=== PATIENT | female | born 1965 | race American Indian/Alaskan Native ===

== ENCOUNTER 2016-10-31 14:03 | Emergency (ER) | payer SELFPAY | END 2016-10-31 14:04 | disposition left against medical advice (07) | LOC: ED 14:03 | DX: R07.9 Chest pain, unspecified (principal); R06.02 Shortness of breath; H53.8 Other visual disturbances; Z53.21 Procedure and treatment not carried out due to patient leaving prior to being seen by health care provider ==

== ENCOUNTER 2016-12-26 22:03 | Emergency (ER) | payer OTHER ==
[2016-12-26] MEDS ORDERED: TYLENOL ONE (22:10)
[2016-12-26 22:11] VITALS: BP 178/97
[2016-12-26] MEDS ORDERED: TYLENOL PO ONE (22:18)
[2016-12-26 23:27] LABS: Basophils % (Auto) 0.5 % (0.0-1.8); Eosinophils % (Auto) 2.6 % (0.0-4.3); Hematocrit 28.4 % (30.3-42.9); Hemoglobin 8.7 gm/dl (10.1-14.3); Mean Corpuscular HGB Conc 31 % (30-34); Red Blood Count 5.26 M/mm3 (3.65-5.03); White Blood Count 7.1 K/mm3 (4.5-11.0)
[2016-12-26 23:44] LABS: Anion Gap 16 mmol/L; Blood Urea Nitrogen 15 mg/dL (7-17); Calcium 9.3 mg/dL (8.4-10.2); Carbon Dioxide 25 mmol/L (22-30); Chloride 97.4 mmol/L (98-107); Glucose 108 mg/dL (65-100); Potassium 3.7 mmol/L (3.6-5.0); Sodium 135 mmol/L (137-145)
[2016-12-26 23:50] LABS: Mean Corpuscular Hemoglobin 17 pg (28-32); Mean Corpuscular Volume 54 fl (79-97)
[2016-12-26 23:51] LABS: Platelet Count 299 K/mm3 (140-440); Red Cell Distribution Width 22.5 % (13.2-15.2)
--- NOTE | 2016-12-27 00:10 | Emergency Department Report ---
Upper Extremity - HPI Chief Complaint: Extremity Problem,Nontraumatic Stated Complaint: LEFT ARM NUMBNESS/SHARP PAIN Time Seen by Provider: 12/27/16 00:08 Upper Extremity: Left Arm (pain and numbness with tingling times one week. Denies any injuries.), Left Forearm, Left Wrist Occurred When: >5 Days Mechanism: Unsure Symptoms: Yes Pain with Movement (without movement), Yes Numbness, No Deformity , No Limited Range of Movement, No Weakness, No Swelling, No Bruising/Ecchymosis , No Laceration or Abrasion Other History: Patient here reports that she's having left arm pain with numbness times one week. She denies any trauma or any history of shoulder injuries. She denies any numbness or tingling to hands her finger. Denies any pain in her wrist. She said pain radiates to her forearm and wrist.. Pain is 10 out of 10 and achy and tingling. Denies any history of heart disease, chest pain or shortness of breath. denies any medical problems. 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 ED Review of Systems ROS: Stated complaint: LEFT ARM NUMBNESS/SHARP PAIN Other details as noted in HPI Comment: All other systems reviewed and negative Constitutional: denies: chills, fever Respiratory: no symptoms reported Cardiovascular: denies: chest pain, palpitations, edema, syncope Gastrointestinal: denies: abdominal pain, nausea, vomiting Musculoskeletal: arthralgia. denies: back pain, myalgia Skin: denies: rash Neurological: numbness, paresthesias. denies: headache, weakness, confusion, abnormal gait, vertigo ED Past Medical Hx - Past Medical History Previous Medical History?: No Additional medical history: Anemia - Surgical History Past Surgical History?: Yes Additional Surgical History: C-Sec x 1 - Family History Family history: no significant - Social History Smoking Status: Never Smoker Substance Use Type: None - Medications Home Medications: Home Medications Medication Instructions Recorded Confirmed Last Taken Type traMADol [Ultram] 50 mg PO Q6HR PRN #20 tablet 12/27/16 Unknown Rx Upper Extremity Exam - Exam General: Vital signs noted. No distress. Alert and acting appropriately. Head and Torso: No HEENT Abnormality, No Neck Tenderness, No Chest/Lungs Abnormality, No Abdominal Tenderness, No Back Tenderness Shoulder Exam: Yes Normal Range of Motion in Shoulder, No Shoulder Tenderness, No Clavicle Tenderness, No Shoulder Deformity, No AC Joint Tenderness Arm Exam: No Arm/Humerus Tenderness, No Arm Deformity Elbow: Yes Normal Range of Motion in Elbow, No Elbow Tenderness, No Elbow Deformity Forearm: No Forearm Tenderness, No Forearm Deformity, No Pain with Pronation, No Pain with Supination Wrist: Yes Normal ROM in Wrist, No Wrist Tenderness, No Wrist Deformity, No Snuffbox Tenderness, No Pain with Axial Thumb Compression Hand: Yes Normal ROM in Digit(s), No Hand Tenderness (bilateral hand chief mate strong and equal), No Hand Deformity, No Digit Tenderness, No Digit(s) Deformity , No Tendon Dysfunction CMS Exam: Yes Normal Distal Pulses, Yes Normal Capillary Refill, Yes Normal Distal Sensation, No Broken Skin ED Course Vital Signs 12/26/16 22:10 Temperature 98.2 F Pulse Rate 88 Respiratory 18 Rate Blood Pressure 178/97 [Right] O2 Sat by Pulse 100 Oximetry - Reevaluation(s) Reevaluation #1: 12/27/16 01:32 Patient given Tylenol 650 mg in triage area for pain. - Orthopedic Splinting/Casting Injury #1 Side: left Upper Extremity Injury Location: wrist Upper Extremity Immobilizer: wrist splint ED Medical Decision Making - Lab Data Result diagrams: 12/26/16 23:06 12/26/16 23:06 Lab Results 12/26/16 12/26/16 12/26/16 Range/Units 23:06 23:06 23:06 WBC 7.1 (4.5-11.0) K/mm3 RBC 5.26 H (3.65-5.03) M/mm3 Hgb 8.7 L (10.1-14.3) gm/dl Hct 28.4 L (30.3-42.9) % MCV 54 L (79-97) fl MCH 17 L (28-32) pg MCHC 31 (30-34) % RDW 22.5 H (13.2-15.2) % Plt Count 299 (140-440) K/mm3 Lymph % (Auto) 37.6 H (13.4-35.0) % [place] % (Auto) 9.6 H (0.0-7.3) % Eos % (Auto) 2.6 (0.0-4.3) % Baso % (Auto) 0.5 (0.0-1.8) % Lymph # 2.7 (1.2-5.4) K/mm3 [place] # 0.7 (0.0-0.8) K/mm3 Eos # 0.2 (0.0-0.4) K/mm3 Baso # 0.0 (0.0-0.1) K/mm3 Seg Neutrophils % 49.7 (40.0-70.0) % Seg Neutrophils # 3.5 (1.8-7.7) K/mm3 Sodium 135 L (137-145) mmol/L Potassium 3.7 (3.6-5.0) mmol/L Chloride 97.4 L (98-107) mmol/L Carbon Dioxide 25 (22-30) mmol/L Anion Gap 16 mmol/L BUN 15 (7-17) mg/dL Creatinine 0.6 L (0.7-1.2) mg/dL Estimated GFR > 60 ml/min BUN/Creatinine Ratio 25.00 % Glucose 108 H (65-100) mg/dL Calcium 9.3 (8.4-10.2) mg/dL Magnesium 2.0 (1.7-2.3) mg/dL HCG, Qual Negative (Negative) - Medical Decision Making ED course: Patient here with extremity pain and numbness. I discussed with her that she does not have any broken bones or dislocation of bones this am and physical exam. Bilateral hand chief mate are strong and equal, she has good color, sensation, movement in temperature to extremities. Radial and ulnar pulses are full and bounding. Patient blood work reflects anemia and she says she has a history of anemia. I told her that she will need to start taking iron tablets. Patient says she is already on iron medication. He was not having any shortness of breath or chest pain. She also has sodium of 135 which is mildly decreased. I told patient she is to drink Gatorade a couple times a day for 2 days. I discussed with patient that she will need to follow-up with orthopedic doctor for further evaluation and treatment. Patient was understanding of discharge instructions and diagnosis. Referred to orthopedic and neurologist. Discharged home with prescription for Ultram. Was given Tylenol 650 mg in emergency room area for pain. Critical care attestation.: If time is entered above; I have spent that time in minutes in the direct care of this critically ill patient, excluding procedure time. ED Disposition Clinical Impression: Arthralgia of multiple sites, Paresthesia of left upper extremity Anemia Qualifiers: Anemia type: unspecified type Qualified Code(s): D64.9 - Anemia, unspecified Disposition: DISCHARGED TO HOME OR SELFCARE Is pt being admited?: No Does the pt Need Aspirin: No Condition: Stable Instructions: Paresthesia (ED), Arthralgia (ED) Additional Instructions: Please follow-up urine primary care physician and have them refer you to her orthopedic and/or neurology for further study of numbness to left upper extremity. please take medication as prescribed. Prescriptions: traMADol [Ultram] 50 mg PO Q6HR PRN #20 tablet PRN Reason: Pain Referrals: PRIMARY MD MAME [Primary Care Provider] - 12/28/16 PRANAV BUTLER MD [Staff Physician] - 12/28/16 ANDERSON CRAIG MD [Staff Physician] - 12/28/16 Forms: Accompanied Note, Work/School Release Form(ED)
== END 2016-12-27 01:54 | disposition home or self-care (01) ==
LOC: ED 22:03
DX: M79.602 Pain in left arm (principal); R20.9 Unspecified disturbances of skin sensation; D64.9 Anemia, unspecified
CPT/HCPCS: 36415; 80048; 83735; 84703; 85025

== ENCOUNTER 2017-12-31 22:09 | Emergency (ER) | payer OTHER ==
[2017-12-31 22:22] VITALS: BP 172/91
[2017-12-31] MEDS ORDERED: DUONEB *Not for PRN Use IH ONE (22:58)
[2018-01-01] MEDS ORDERED: MOTRIN ONE (01:01)
[2018-01-01] MEDS ORDERED: MOTRIN PO ONE (01:04)
--- NOTE | 2018-01-01 03:03 | Emergency Department Report ---
ED Extremity Problem HPI - General Chief complaint: Extremity Problem,Nontraumatic Stated complaint: knee pain Time Seen by Provider: 01/01/18 02:58 Source: patient Mode of arrival: Ambulatory Limitations: No Limitations - History of Present Illness Initial comments: 52-year-old -[place] female comes in for complaint of right elbow and left knee radiating to the toe. She reports is been going of for one week. She does admit to taking ibuprofen and using topical cream as well as Goody powders without much resolution. Patient reports that her knees gives out when she sits for greater than 30 minutes and gets up she has more pain pain seems to improve as she keeps moving. Patient has no past medical history currently takes no medication has no known drug allergies. MD Complaint: extremity pain -: week(s) (1) Location: left, knee History of Same: No -: Yes arthralgia, No fever, No associated dyspnea, No associated chest pain Radiation: distal Severity scale (0 -10): 4 Quality: burning, aching Consistency: intermittent Improves with: rest Worsens with: walking Associated Symptoms: denies other symptoms - Related Data Previous Rx's Medication Instructions Recorded Last Taken Type Ibuprofen [Motrin 800 MG tab] 800 mg PO Q8HR PRN #30 tablet 01/01/18 Unknown Rx traMADol [Ultram 50 MG tab] 50 mg PO Q6HR PRN #20 tablet 01/01/18 Unknown Rx Allergies Allergy/AdvReac Type Severity Reaction Status Date / Time No Known Allergies Allergy Verified 12/26/16 22:17 ED Review of Systems ROS: Stated complaint: knee pain Other details as noted in HPI Constitutional: denies: chills, fever Eyes: denies: eye pain, eye discharge, vision change ENT: denies: ear pain, throat pain Respiratory: denies: cough, shortness of breath, wheezing Cardiovascular: denies: chest pain, palpitations Endocrine: no symptoms reported Gastrointestinal: denies: abdominal pain, nausea, diarrhea Genitourinary: denies: urgency, dysuria, discharge Musculoskeletal: arthralgia (left knee right elbow). denies: back pain, joint swelling Skin: denies: rash, lesions Neurological: denies: headache, weakness, paresthesias Psychiatric: denies: anxiety, depression Hematological/Lymphatic: denies: easy bleeding, easy bruising ED Past Medical Hx - Past Medical History Previous Medical History?: No Additional medical history: Anemia - Surgical History Past Surgical History?: Yes Additional Surgical History: C-Sec x 1 - Social History Smoking Status: Never Smoker Substance Use Type: None - Medications Home Medications: Home Medications Medication Instructions Recorded Confirmed Last Taken Type Ibuprofen [Motrin 800 MG tab] 800 mg PO Q8HR PRN #30 tablet 01/01/18 Unknown Rx traMADol [Ultram 50 MG tab] 50 mg PO Q6HR PRN #20 tablet 01/01/18 Unknown Rx ED Physical Exam - General Limitations: No Limitations General appearance: alert, in no apparent distress - Head Head exam: Present: atraumatic, normocephalic - Eye Eye exam: Present: normal appearance - ENT ENT exam: Present: mucous membranes moist - Neck Neck exam: Present: normal inspection - Respiratory Respiratory exam: Present: normal lung sounds bilaterally. Absent: respiratory distress - Cardiovascular Cardiovascular Exam: Present: regular rate, normal rhythm. Absent: systolic murmur, diastolic murmur, rubs, gallop - GI/Abdominal GI/Abdominal exam: Present: soft, normal bowel sounds - Extremities Exam Extremities exam: Present: normal inspection - Back Exam Back exam: Present: normal inspection - Neurological Exam Neurological exam: Present: alert, oriented X3 - Psychiatric Psychiatric exam: Present: normal affect, normal mood - Skin Skin exam: Present: warm, dry, intact, normal color. Absent: rash ED Course Vital Signs 12/31/17 12/31/17 22:16 22:37 Temperature 98.2 F 98.2 F Pulse Rate 103 H 103 H Respiratory 18 18 Rate Blood Pressure 172/91 172/91 O2 Sat by Pulse 100 100 Oximetry ED Medical Decision Making - Medical Decision Making Patient's been evaluated by this provider fast track. Patient's been given ibuprofen for pain. Discussed the patient this sounds like arthritis. Discussed the patient I will give her prescription for tramadol to continue with the ibuprofen breakfast lunch and dinner and use tremor off for breakthrough pain. Discussed the patient I will refer her to an orthopedist for further evaluation. Patient verbalized understanding. Critical care attestation.: If time is entered above; I have spent that time in minutes in the direct care of this critically ill patient, excluding procedure time. ED Disposition Clinical Impression: Chronic pain of right elbow Left knee pain Qualifiers: Chronicity: acute Qualified Code(s): M25.562 - Pain in left knee Disposition: DC-01 TO HOME OR SELFCARE Is pt being admited?: No Does the pt Need Aspirin: No Condition: Stable Additional Instructions: Take pain medication as prescribed. If symptoms persist or gets worse please follow-up with orthopedic provider. Prescriptions: Ibuprofen [Motrin 800 MG tab] 800 mg PO Q8HR PRN #30 tablet PRN Reason: Pain traMADol [Ultram 50 MG tab] 50 mg PO Q6HR PRN #20 tablet PRN Reason: Pain Referrals: HUA ISAAC MD [Primary Care Provider] - 3-5 Days
== END 2018-01-01 03:14 | disposition home or self-care (01) ==
LOC: ED 22:09
DX: G89.29 Other chronic pain (principal); M25.521 Pain in right elbow; M25.562 Pain in left knee
CPT/HCPCS: 99282

== ENCOUNTER 2018-03-28 02:26 | Emergency (ER) | payer SELFPAY ==
[2018-03-28] MEDS ORDERED: ASPIRIN PO ONE (02:58)
[2018-03-28 02:59] VITALS: BP 164/96
[2018-03-28 03:10] LABS: Mean Corpuscular HGB Conc 29 % (30-34); Platelet Count 430 K/mm3 (140-440); Red Blood Count 5.96 M/mm3 (3.65-5.03)
[2018-03-28 03:16] LABS: Hemoglobin 9.2 gm/dl (10.1-14.3); Mean Corpuscular Hemoglobin 15 pg (28-32); Mean Corpuscular Volume 54 fl (79-97)
[2018-03-28 03:17] LABS: Red Cell Distribution Width 24.9 % (13.2-15.2)
[2018-03-28 03:18] LABS: Hematocrit 31.5 % (30.3-42.9)
[2018-03-28 03:24] LABS: BUN/Creatinine Ratio 17; Blood Urea Nitrogen 12 mg/dL (7-17); Calcium 10.2 mg/dL (8.4-10.2); Hemolysis Index 3
--- NOTE | 2018-03-28 05:01 | Emergency Department Report ---
ED Chest Pain HPI - General Chief Complaint: Chest Pain Stated Complaint: CHEST PAIN/IRREGULAR HEART BEAT Time Seen by Provider: 03/28/18 04:33 Source: patient Mode of arrival: Ambulatory Limitations: No Limitations - History of Present Illness Initial Comments: Ms. Casper is 52 yo female with one day of intermittent nonexertional chest pain. She does not have pain per se. She feels as if she has pauses in her heartbeat such as irregular heart beat. +neck pain left side, posterior headache +lightheadedness mild symptoms MD Complaint: chest pain -: Gradual, days(s) (1) Onset: during rest Pain Location: left chest Severity: mild Consistency: intermittent Improves With: nothing Worsens With: nothing - Related Data Previous Rx's Medication Instructions Recorded Last Taken Type Ibuprofen [Motrin 800 MG tab] 800 mg PO Q8HR PRN #30 tablet 01/01/18 Unknown Rx traMADol [Ultram 50 MG tab] 50 mg PO Q6HR PRN #20 tablet 01/01/18 Unknown Rx traMADol [Ultram 50 MG tab] 50 mg PO Q6H PRN #20 tablet 03/28/18 Unknown Rx Allergies Allergy/AdvReac Type Severity Reaction Status Date / Time No Known Allergies Allergy Verified 12/26/16 22:17 Heart Score - HEART Score History: Slightly suspicious EKG: Normal Age: 45-65 Risk factors: 1-2 risk factors Troponin: < normal limit HEART Score: 2 ED Review of Systems ROS: Stated complaint: CHEST PAIN/IRREGULAR HEART BEAT Other details as noted in HPI Comment: All other systems reviewed and negative Constitutional: denies: fever, malaise Respiratory: denies: cough Cardiovascular: chest pain, palpitations Neurological: headache ED Past Medical Hx - Past Medical History Previous Medical History?: Yes Additional medical history: Anemia - Surgical History Past Surgical History?: Yes Additional Surgical History: C-Sec x 1 - Family History Family history: CAD/MS, diabetes - Social History Smoking Status: Never Smoker Substance Use Type: None 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 Absent: scleral icterus, conjunctival injection - ENT ENT exam: Present: mucous membranes moist - Neck Neck exam: Present: normal inspection, full ROM. Absent: tenderness, meningismus - Respiratory Respiratory exam: Present: normal lung sounds bilaterally. Absent: respiratory distress, wheezes, rales, rhonchi - Cardiovascular Cardiovascular Exam: Present: regular rate, normal rhythm, normal heart sounds. Absent: systolic murmur, diastolic murmur, rubs, gallop - GI/Abdominal GI/Abdominal exam: Present: soft, normal bowel sounds. Absent: distended, tenderness, guarding, rebound - Extremities Exam Extremities exam: Present: normal inspection - Back Exam Back exam: Present: normal inspection - Neurological Exam Neurological exam: Present: alert, oriented X3 - Psychiatric Psychiatric exam: Present: normal affect, normal mood - Skin Skin exam: Present: warm, dry, intact, normal color. Absent: rash ED Course Vital Signs 03/28/18 02:54 Temperature 98.4 F Pulse Rate 90 Respiratory 18 Rate Blood Pressure 164/96 O2 Sat by Pulse 100 Oximetry CYDNEY score - Cydney Score Age > 65: (0) No Aspirin use within the Past 7 Days: (0) No 3 or more CAD Risk Factors: (0) No 2 or more Angina events in past 24 hrs: (0) No Known CAD with more than 50% Stenosis: (0) No Elevated Cardiac Markers: (0) No ST Deviation Greater than 0.5mm: (0) No CYDNEY Score: 0 ED Medical Decision Making - Lab Data Result diagrams: 03/28/18 03:01 03/28/18 03:01 Laboratory Results - last 24 hr 03/28/18 03/28/18 03:01 03:01 WBC 8.0 RBC 5.96 H Hgb 9.2 L Hct 31.5 MCV 54 L MCH 15 L MCHC 29 L RDW 24.9 H Plt Count 430 Sodium 137 Potassium 4.0 Chloride 97.8 L Carbon Dioxide 27 Anion Gap 16 BUN 12 Creatinine 0.7 Estimated GFR > 60 BUN/Creatinine Ratio 17 Glucose 120 H Calcium 10.2 Troponin T < 0.010 Vital Signs - 24 hr 03/28/18 02:54 Temperature 98.4 F Pulse Rate 90 Respiratory 18 Rate Blood Pressure 164/96 O2 Sat by Pulse 100 Oximetry - EKG Data 03/28/18 05:00 Time obtained 0232 Rate 80 beats minute normal axis normal intervals no ST T signs of ischemia positive LVH no ST elevation - Medical Decision Making Ms. Casper presents with palpitations headache neck pain. I suspect tension headache with palpitations possibly due to PVCs. Pain is atypical for ACS. She is low risk with a heart score of 2. Do not suspect PE or lethal arrhythmia. She'll follow up with outside clinic to which she was referred. I provided tramadol for headache and neck pain likely due to tension. She has been recently treated for toothache. She is currently taking antibiotics For dental infection. Critical care attestation.: If time is entered above; I have spent that time in minutes in the direct care of this critically ill patient, excluding procedure time. ED Disposition Clinical Impression: Tension headache, Palpitations Disposition: TO HOME OR SELFCARE Is pt being admited?: No Does the pt Need Aspirin: No Condition: Stable Instructions: Palpitations (ED), Chest Pain (ED) Prescriptions: traMADol [Ultram 50 MG tab] 50 mg PO Q6H PRN #20 tablet PRN Reason: Pain , Severe (7-10) Referrals: [facility] [Outside] - 3-5 Days Forms: Work/School Release Form(ED) Time of Disposition: 05:04
[2018-03-28] MEDS ORDERED: ULTRAM PO ONE (05:04)
[2018-03-28 05:38] LABS: Anisocytosis 2+; Basophils % (Manual) 0 % (0.0-1.8); Total Cells Counted 100
[2018-03-28 05:39] LABS: Hypochromasia 2+; Poikilocytosis 1+; Tear Drop Cells Few
== END 2018-03-28 05:15 | disposition home or self-care (01) ==
LOC: ED 02:26
DX: R21 Rash and other nonspecific skin eruption (principal); F17.200 Nicotine dependence, unspecified, uncomplicated; W57.XXXA Bitten or stung by nonvenomous insect and other nonvenomous arthropods, initial encounter; Y93.89 Activity, other specified; Y99.8 Other external cause status; Y92.89 Other specified places as the place of occurrence of the external cause
CPT/HCPCS: 36415; 80048; 84484; 85007; 85025; 93005; 93010

== ENCOUNTER 2019-08-25 10:32 | Day surgery (SDC) | payer OTHER ==
[~2019-08-25 10:32] MED LIST: SODIUM CHLORIDE 0.9% 1000 ML 1,000 ML IV SCH
--- NOTE | 2019-08-25 11:21 | Anesthesia Consultation ---
Anesthesia Consult and Med Hx Date of service: 08/25/19 - Airway Anesthetic Teeth Evaluation: Poor ROM Head & Neck: Adequate Mental/Hyoid Distance: Adequate Mallampati Class: Class III Intubation Access Assessment: Probably Good - Pre-Operative Health Status ASA Pre-Surgery Classification: ASA2 Proposed Anesthetic Plan: MAC - Pre-Anesthesia Comment Pre-Anesthesia Comments: Patient drank water, coffee with small amout of sugar, and a green clear Jello at 9AM. Patient advised of risk factors of aspiration during sedation. Dr. Chin informed and Dr. Garcia notified. Will wait 2 hours before sedation. - Pulmonary Hx Smoking: Yes (Occassionally socially; within the past year) - Cardiovascular System Hx Hypertension: Yes (Not taking meds) - Endocrine Hx Insulin Dependent Diabetes: No (Taking Metformin for weight loss) - Hematic Hx Anemia: Yes - Other Systems Hx Alcohol Use: Yes (Socially)
--- NOTE | 2019-08-25 11:23 | Anesthesia Day of Surgery ---
Anesthesia Day of Surgery - Day of Surgery Patient Examined: Yes Patient H&P Reviewed: Yes Patient is NPO: No (Patient ate clear Jello & drank coffee and water 2 hours ago.)
[2019-08-25] MEDS ORDERED: PROPOFOL 200 MG/20 ML VIAL IV ONE (11:25)
--- NOTE | 2019-08-25 11:41 | Short Stay Summary ---
Short Stay Documentation Date of service: 08/25/19 Narrative H&P: The patient presents for her first screening colonoscopy. Average risks. - History Past Medical History: hypertension, other (Pre diabetes) Past Surgical History: No surgical history Social history: no significant social history - Allergies and Medications Current Medications: Allergies No Known Allergies Allergy (Verified 08/25/19 11:27) Home Medications Medication Instructions Recorded Confirmed Last Taken Type Furosemide 40 mg PO DAILY 08/25/19 08/25/19 08/23/19 History metFORMIN 500 mg PO DAILY 08/25/19 08/25/19 08/23/19 History Active Medications Sodium Chloride (Nacl 0.9% 1000 Ml) 1,000 mls @ 50 mls/hr IV DIRECT RICKIE Last Admin: 08/25/19 11:02 Dose: 50 mls/hr Documented by: - Physical exam General appearance: no acute distress, well-nourished, obese Integumentary: no rash, no growths, no abnormal pigmentation HEENT: Atraumatic, PERRLA, EOMI, Mucous membr. moist/pink Lungs: Clear to auscultation, Normal air movement Breasts: deferred Heart: Regular rate, Normal S1, Normal S2, No murmurs Gastrointestinal: normoactive bowel sounds, no tenderness, no distended, no masses, no organomegaly, obese Female Genitourinary: deferred Rectal Exam: normal exam-external/orifice, normal rectal tone, no mass Extremities: no ischemia, pulses intact, pulses symmetrical, No edema, normal temperature, normal color, Full ROM Neurological: Normal gait, Normal speech, Strength at 5/5 X4 ext, Normal tone, Sensation intact, Cranial nerves 3-12 NL - Brief post op/procedure progress note Date of procedure: 08/25/19 Findings: report dictated Estimated blood loss: none Pathology: none Condition: stable - Disposition Condition at discharge: Good Disposition: DC-01 TO HOME OR SELFCARE - Discharge Diagnoses (1) Colon cancer screening Status: Acute Short Stay Discharge Plan Activity: other (no driving for 24 hours) Weight Bearing Status: Weight Bear as Tolerated Diet: regular Follow up with: [facility] CUETO MD [Primary Care Provider] - 7 Days
--- NOTE | 2019-08-25 11:44 | Operative Report ---
Operative Report Operative Report: Date of procedure: 08/25/2019 Preprocedure diagnosis: Colon cancer screening, average risk. No prior studies. Post procedure diagnosis: Left colon diverticulosis Procedure: Colonoscopy to the cecum Endoscopist: Dr. Chin Anesthesia: Monitored anesthesia care per anesthesia department Estimated blood loss: 0 Medications: Monitored anesthesia care. See separate report by anesthesia for details. After careful discussion of the nature and purpose of the procedure as well as details of the technique risks benefits and alternatives the patient gave consent. Please see recent history and physical from the office. The patient was placed in the left lateral decubitus position and medicated per anesthesia. A rectal exam was performed sphincter tone was normal there were no masses palpable. The Olympus colonoscope was passed transanally and advanced under continuous direct vision without difficulty to the cecum. The colon was well prepared. The cecum was normal. The ascending colon was normal and on forward and retroflexed views. The transverse colon and descending colon were normal. Scattered diverticula throughout the sigmoid colon. The rectum was normal on forward and retroflexed views. The procedure was well-tolerated overall and the patient was observed in recovery. Conclusions: Colon diverticulosis, otherwise normal study. Plan: Repeat colonoscopy in 10 years, sooner if clinically indicated. Signed electronically: Philip Chin M.D.
[2019-08-25 12:22] VITALS: BP 159/86
--- NOTE | 2019-08-25 15:58 | Post Anesthesia Evaluation ---
- Post Anesthesia Evaluation Patient Participated: Yes Airway Patent: Yes Stable Respiratory Function: Yes Nausea/Vomiting: No Temp > 96.8F: Yes Pain Manageable: Yes Adequeate Hydration: Yes Anesthesia Complications: No Block Receding Appropriately: Not Applicable Patient on Ventilator: No
== END 2019-08-25 10:33 | disposition home or self-care (01) ==
LOC: GIO 10:32
PROVIDERS: ATTEND Internal Medicine Gastroenterology
DX: Z12.11 Encounter for screening for malignant neoplasm of colon (principal); K57.30 Diverticulosis of large intestine without perforation or abscess without bleeding; I10 Essential (primary) hypertension; Z79.84 Long term (current) use of oral hypoglycemic drugs; Z79.899 Other long term (current) drug therapy; Z72.89 Other problems related to lifestyle; Z86.2 Personal history of diseases of the blood and blood-forming organs and certain disorders involving the immune mechanism
CPT/HCPCS: 45378; J2704

== ENCOUNTER 2021-03-13 09:55 | Emergency (ER) | payer OTHER ==
[2021-03-13] MEDS ORDERED: ASPIRIN 325 MG TAB PO ONE (10:43)
[2021-03-13] MEDS ORDERED: MORPHINE 4 MG/1 ML INJ IV ONE (10:44)
[2021-03-13] MEDS ORDERED: ONDANSETRON 4 MG/2 ML INJ IV ONE (10:44)
--- NOTE | 2021-03-13 10:49 | Emergency Department Report ---
ED Chest Pain HPI - General Chief Complaint: Chest Pain Stated Complaint: CHEST PAIN, KNOTS IN LOWER BACK Time Seen by Provider: 03/13/21 10:39 Source: patient Mode of arrival: Ambulatory Limitations: No Limitations - History of Present Illness Initial Comments: Patient is 55 years old female with history of hypertension. Patient presented to the ER complaining of left-sided chest pain, heaviness in nature with no radiation. Patient stated that pain started this morning. Patient rated pain at 9 out of 10. Patient denied any fever or chills or cough. Patient stated that she had mild shortness of breath. MD Complaint: chest pain -: This morning Onset: during rest Pain Location: left chest Pain Radiation: none Severity: severe Severity scale (0 -10): 9 Quality: sharp Consistency: constant Improves With: nothing - Related Data Home Medications Medication Instructions Recorded Confirmed Last Taken Furosemide 40 mg PO DAILY 08/25/19 03/13/21 1 Week Ago ~03/06/21 metFORMIN 500 mg PO DAILY 08/25/19 03/13/21 2 Months Ago ~01/11/21 Losartan 50 mg PO DAILY 03/13/21 03/13/21 1 Week Ago ~03/06/21 Potassium Chloride 10 meq PO DAILY 03/13/21 03/13/21 2 Months Ago ~01/11/21 Vitamin D2 1,000 mg PO 1XW 03/13/21 03/13/21 1 Week Ago ~03/06/21 amLODIPine 5 mg PO DAILY 03/13/21 03/13/21 2 Months Ago ~01/11/21 hydroCHLOROthiazide 25 mg PO DAILY 03/13/21 03/13/21 2 Months Ago ~01/11/21 Allergies Allergy/AdvReac Type Severity Reaction Status Date / Time No Known Allergies Allergy Verified 03/13/21 11:04 Heart Score - HEART Score History: Slightly suspicious EKG: Non-specific Age: 45-65 Risk factors: 1-2 risk factors Troponin: < normal limit HEART Score: 3 - EKG Read Time Time EKG Completed: 10:04 EKG Read Time: 10:08 ED Review of Systems ROS: Stated complaint: CHEST PAIN, KNOTS IN LOWER BACK Other details as noted in HPI Comment: All other systems reviewed and negative Constitutional: denies: chills, fever Respiratory: denies: cough, shortness of breath, SOB with exertion Cardiovascular: chest pain. denies: palpitations, dyspnea on exertion Gastrointestinal: denies: abdominal pain, nausea, vomiting Musculoskeletal: denies: back pain Neurological: denies: headache, weakness, numbness, paresthesias, confusion, abnormal gait ED Past Medical Hx - Past Medical History Previous Medical History?: Yes Hx Hypertension: Yes (Not taking meds) Additional medical history: Anemia - Surgical History Past Surgical History?: Yes Additional Surgical History: C-Sec x 1 - Social History Smoking Status: Never Smoker - Medications Home Medications: Home Medications Medication Instructions Recorded Confirmed Last Taken Type Furosemide 40 mg PO DAILY 08/25/19 03/13/21 1 Week Ago History ~03/06/21 metFORMIN 500 mg PO DAILY 08/25/19 03/13/21 2 Months Ago History ~01/11/21 Losartan 50 mg PO DAILY 03/13/21 03/13/21 1 Week Ago History ~03/06/21 Potassium Chloride 10 meq PO DAILY 03/13/21 03/13/21 2 Months Ago History ~01/11/21 Vitamin D2 1,000 mg PO 1XW 03/13/21 03/13/21 1 Week Ago History ~03/06/21 amLODIPine 5 mg PO DAILY 03/13/21 03/13/21 2 Months Ago History ~01/11/21 hydroCHLOROthiazide 25 mg PO DAILY 03/13/21 03/13/21 2 Months Ago History ~01/11/21 ED Physical Exam - General Limitations: No Limitations General appearance: alert, in distress (due to pain) - Head Head exam: Present: atraumatic, normocephalic, normal inspection - Eye Eye exam: Present: normal appearance, PERRL - ENT ENT exam: Present: normal exam, normal orophraynx, mucous membranes moist - Neck Neck exam: Present: normal inspection, full ROM. Absent: tenderness, meningismus - Respiratory Respiratory exam: Present: normal lung sounds bilaterally - Cardiovascular Cardiovascular Exam: Present: regular rate, normal rhythm, normal heart sounds - GI/Abdominal GI/Abdominal exam: Present: soft, normal bowel sounds. Absent: distended, tenderness, guarding, rebound, rigid, organomegaly, mass, bruit, pulsatile mass, hernia - Extremities Exam Extremities exam: Present: normal inspection, full ROM, normal capillary refill. Absent: pedal edema, calf tenderness - Back Exam Back exam: Present: normal inspection, full ROM. Absent: CVA tenderness (R), CVA tenderness (L) - Neurological Exam Neurological exam: Present: alert, oriented X3, CN II-XII intact - Psychiatric Psychiatric exam: Present: normal mood - Skin Skin exam: Present: warm, intact, normal color ED Course Vital Signs 03/13/21 03/13/21 03/13/21 10:00 11:05 11:31 Temperature 98.3 F Pulse Rate 82 81 87 Respiratory 18 12 12 Rate Blood Pressure 156/76 Blood Pressure 175/94 [Right] O2 Sat by Pulse 99 100 98 Oximetry CYDNEY score - Cydney Score Age > 65: (0) No Aspirin use within the Past 7 Days: (0) No 3 or more CAD Risk Factors: (0) No 2 or more Angina events in past 24 hrs: (0) No Known CAD with more than 50% Stenosis: (0) No Elevated Cardiac Markers: (0) No ST Deviation Greater than 0.5mm: (0) No CYDNEY Score: 0 ED Medical Decision Making - Lab Data Result diagrams: 03/13/21 10:50 03/13/21 10:50 - EKG Data -: EKG Interpreted by Sd EKG shows normal: sinus rhythm Rate: normal - EKG Data Interpretation: no acute changes - Radiology Data Radiology results: report reviewed - Medical Decision Making Patient is 55 years old female with history of hypertension. Patient presented to the ER complaining of left-sided chest pain, heaviness in nature with no radiation. Patient stated that pain started this morning. Patient rated pain at 9 out of 10. Patient denied any fever or chills or cough. Patient stated that she had mild shortness of breath. EKG is unremarkable. Chest x-ray is negative for acute finding. Labs reviewed and is unremarkable including negative troponin x2. Patient heart score is 3. Patient chest pain is completely resolved after morphine and Zofran. Patient strongly advised to follow-up with her primary care physician for outpatient cardiac work-up in the next 2 to 3 days and also advised to return to the ER she develop any new symptoms. Critical care attestation.: If time is entered above; I have spent that time in minutes in the direct care of this critically ill patient, excluding procedure time. ED Disposition Clinical Impression: Acute chest pain Disposition: DC- TO HOME OR SELFCARE Is pt being admited?: No Condition: Stable Instructions: Chest Pain (ED), Nonspecific Chest Pain, Adult Referrals: AKILAH RAYMOND MD [Primary Care Provider] - 3-5 Days
[2021-03-13 11:30] LABS: Basophils % (Auto) 0.8 % (0.0-1.8); Eosinophils # (Auto) 0.2 K/mm3 (0.0-0.4); Eosinophils % (Auto) 2.7 % (0.0-4.3); Hematocrit 37.3 % (30.3-42.9); Hemoglobin 11.7 gm/dl (10.1-14.3); Lymphocytes # (Auto) 2.3 K/mm3 (1.2-5.4); Lymphocytes % (Auto) 39.5 % (13.4-35.0); Mean Corpuscular HGB Conc 31 % (30-34); Monocytes # (Auto) 0.5 K/mm3 (0.0-0.8); Monocytes % (Auto) 8.4 % (0.0-7.3); Platelet Count 295 K/mm3 (140-440); Red Blood Count 5.53 M/mm3 (3.65-5.03); Red Cell Distribution Width 17.7 % (13.2-15.2)
[2021-03-13 11:31] LABS: Mean Corpuscular Volume 67 fl (79-97)
--- NOTE | 2021-03-13 11:31 | XRay Report ---
CHEST 1 VIEW 03/13/2021 11:03 AM INDICATION / CLINICAL INFORMATION: Chest Pain. COMPARISON: None available. FINDINGS: SUPPORT DEVICES: None. HEART / MEDIASTINUM: No significant abnormality. LUNGS / PLEURA: No significant pulmonary abnormality. No significant pleural effusion. No pneumothora x. ADDITIONAL FINDINGS: No significant additional findings. IMPRESSION: 1. No acute abnormality of the chest. Signer Name: Isauro Stephenson MD Signed: 03/13/2021 11:27 AM Workstation Name: [id number]
[2021-03-13 11:51] LABS: Partial Thromboplastin Time 31.6 Sec. (24.2-36.6)
[2021-03-13 11:55] LABS: Blood Urea Nitrogen 17 mg/dL (7-17); Calcium 9.6 mg/dL (8.4-10.2); Hemolysis Index 0
[2021-03-13 12:00] LABS: BUN/Creatinine Ratio 28
[2021-03-13 15:44] VITALS: BP 139/77
--- NOTE | 2021-03-15 19:06 | Electrocardiograph Report ---
[facility] Test Date: 2021-03-13 Test Time: 10:04:29 Pat Name: CHARLES POTTS Department: Room: Gender: F Compound Specialist: LIZETH : 1965 Requested By: SEEMA HINES Order Number: [id number] Reading MD: Marcie Sommer Measurements Intervals [place] Rate: 80 P: 55 NV: 146 QRS: 1 QRSD: 81 T: -1 QT: 403 QTc: 459 Interpretive Statements Sinus rhythm Atrial premature complexes No previous ECG available for comparison Electronically Signed On 03-15-2021 19:06:24 EDT by Marcie Sommer
== END 2021-03-13 15:44 | disposition home or self-care (01) ==
LOC: ED 09:55
DX: R07.89 Other chest pain (principal); I10 Essential (primary) hypertension; Z98.890 Other specified postprocedural states; Z79.84 Long term (current) use of oral hypoglycemic drugs; Z79.899 Other long term (current) drug therapy
CPT/HCPCS: 36415; 71045; 80048; 83690; 83880; 84484; 85025; 85379; 85610; 85730; 93005; 96374; 96375; 99284; J2270; J2405

== ENCOUNTER 2021-07-28 13:16 | Emergency (ER) | payer OTHER ==
--- NOTE | 2021-07-28 15:32 | Emergency Department Report ---
ED General Adult HPI - General Chief complaint: Weakness Stated complaint: DEHYDRATION,DIZZINESS,SWOLLEN RT KNEE Time Seen by Provider: 07/28/21 15:15 Source: patient Mode of arrival: Ambulatory Limitations: No Limitations - History of Present Illness Initial comments: The patient was evaluated in the emergency department for symptoms described in the history of present illness. He/she was evaluated in the context of the global COVID-19 pandemic, which necessitated consideration that the patient might be at risk for infection with the virus that causes COVID-19. Institutional protocols and algorithms that pertain to the evaluation of patients at risk for COVID-19 are in a state of rapid change based on information released by regulatory bodies including the CDC and federal and state organizations. These policies and algorithms were followed during the patient's care in the emergency department. Please note that these policies, procedures and recommendations changed on a rapid basis. 56-year-old -[place] female presents to the emergency room complaining of neuropathy, right shoulder pain and states it is painful to lift her arm up. She also reports right knee pain and mild swelling. She denies any injury. She does report she was recently diagnosed with neuropathy is currently taking gabapentin and naproxen. Denies any recent injuries. She states she could not make it to see her doctor today. She states that she is seen by Dr. Serge Myles. Onset/Timin -: days(s) Location: right, upper extremity (Shoulder, knee) Severity scale (0 -10): 7 Quality: stabbing, aching, sharp Consistency: constant Improves with: none Worsens with: movement Associated Symptoms: denies other symptoms Treatments Prior to Arrival: none - Related Data Home Medications Medication Instructions Recorded Confirmed Last Taken Furosemide 40 mg PO DAILY 08/25/19 03/13/21 1 Week Ago ~03/06/21 metFORMIN 500 mg PO DAILY 08/25/19 03/13/21 2 Months Ago ~01/11/21 Losartan 50 mg PO DAILY 03/13/21 03/13/21 1 Week Ago ~03/06/21 Potassium Chloride 10 meq PO DAILY 03/13/21 03/13/21 2 Months Ago ~01/11/21 Vitamin D2 1,000 mg PO 1XW 03/13/21 03/13/21 1 Week Ago ~03/06/21 amLODIPine 5 mg PO DAILY 03/13/21 03/13/21 2 Months Ago ~01/11/21 hydroCHLOROthiazide 25 mg PO DAILY 03/13/21 03/13/21 2 Months Ago ~01/11/21 Previous Rx's Medication Instructions Recorded Last Taken Type Ondansetron [Zofran Odt] 4 mg PO Q8HR PRN #14 tab.rapdis 03/13/21 Unknown Rx traMADoL [Ultram 50 MG tab] 50 mg PO Q4HR PRN #14 tablet 03/13/21 Unknown Rx Diclofenac Sodium [Voltaren 1 applic TP Q6H PRN #20 gel..gram. 07/28/21 Unknown Rx Arthritis Pain] traMADoL [Ultram 50 MG tab] 50 mg PO Q6HR PRN #12 tablet 07/28/21 Unknown Rx Allergies Allergy/AdvReac Type Severity Reaction Status Date / Time No Known Allergies Allergy Verified 03/13/21 11:04 ED Review of Systems ROS: Stated complaint: DEHYDRATION,DIZZINESS,SWOLLEN RT KNEE Other details as noted in HPI Comment: All other systems reviewed and negative ED Past Medical Hx - Past Medical History Previous Medical History?: Yes Hx Hypertension: Yes (Not taking meds) Hx Diabetes: Yes Additional medical history: Anemia - Surgical History Past Surgical History?: Yes Additional Surgical History: C-Sec x 1 - Social History Smoking Status: Never Smoker - Medications Home Medications: Home Medications Medication Instructions Recorded Confirmed Last Taken Type Furosemide 40 mg PO DAILY 08/25/19 03/13/21 1 Week Ago History ~03/06/21 metFORMIN 500 mg PO DAILY 08/25/19 03/13/21 2 Months Ago History ~01/11/21 Losartan 50 mg PO DAILY 03/13/21 03/13/21 1 Week Ago History ~03/06/21 Ondansetron [Zofran Odt] 4 mg PO Q8HR PRN #14 tab.rapdis 03/13/21 Unknown Rx Potassium Chloride 10 meq PO DAILY 03/13/21 03/13/21 2 Months Ago History ~01/11/21 Vitamin D2 1,000 mg PO 1XW 03/13/21 03/13/21 1 Week Ago History ~03/06/21 amLODIPine 5 mg PO DAILY 03/13/21 03/13/21 2 Months Ago History ~01/11/21 hydroCHLOROthiazide 25 mg PO DAILY 03/13/21 03/13/21 2 Months Ago History ~01/11/21 traMADoL [Ultram 50 MG tab] 50 mg PO Q4HR PRN #14 tablet 03/13/21 Unknown Rx Diclofenac Sodium [Voltaren 1 applic TP Q6H PRN #20 gel..gram. 07/28/21 Unknown Rx Arthritis Pain] traMADoL [Ultram 50 MG tab] 50 mg PO Q6HR PRN #12 tablet 07/28/21 Unknown Rx ED Physical Exam - General Limitations: No Limitations General appearance: alert, in no apparent distress - Head Head exam: Present: atraumatic, normocephalic - Eye Eye exam: Present: normal appearance - ENT ENT exam: Present: normal external ear exam - Neck Neck exam: Present: normal inspection, full ROM - Respiratory Respiratory exam: Absent: accessory muscle use - Cardiovascular Cardiovascular Exam: Present: regular rate - GI/Abdominal GI/Abdominal exam: Present: soft - Extremities Exam Extremities exam: Present: normal inspection, full ROM - Expanded Lower Extremity Exam Right Knee exam: Present: full ROM, tenderness, swelling. Absent: erythema Lower Leg exam: Present: normal inspection, full ROM Ankle exam: Present: normal inspection, full ROM Foot/Toe exam: Present: normal inspection, full ROM Neuro vascular tendon exam: Present: no vascular compromise Gait: Positive: observed and normal - Back Exam Back exam: Present: normal inspection, full ROM - Neurological Exam Neurological exam: Present: alert, oriented X3, normal gait - Psychiatric Psychiatric exam: Present: normal affect, normal mood - Skin Skin exam: Present: warm, dry, intact, normal color. Absent: rash ED Medical Decision Making - Medical Decision Making 56-year-old -[place] female presents to the emergency room complaining of neuropathy, right shoulder pain and states it is painful to lift her arm up. She also reports right knee pain and mild swelling. She denies any injury. She does report she was recently diagnosed with neuropathy is currently taking gabapentin and naproxen. Denies any recent injuries. She states she could not make it to see her doctor today. She states that she is seen by Dr. Serge Myles. Critical care attestation.: If time is entered above; I have spent that time in minutes in the direct care of this critically ill patient, excluding procedure time. ED Disposition Clinical Impression: Right anterior shoulder pain, Right knee pain Disposition: HOME / SELF CARE / HOMELESS Is pt being admited?: No Does the pt Need Aspirin: No Condition: Stable Instructions: Acute Knee Pain, Adult, Shoulder Pain, [id number], Joint Pain, [id number] Additional Instructions: Please take pain medication as needed. Follow-up with orthopedics. Prescriptions: traMADoL [Ultram 50 MG tab] 50 mg PO Q6HR PRN #12 tablet PRN Reason: Pain Diclofenac Sodium [Voltaren Arthritis Pain] 1 applic TP Q6H PRN #20 gel..gram. PRN Reason: Pain, Moderate (4-6) Referrals: PRIMARY CARE,MD [Primary Care Provider] - 3-5 Days SERGIO MARIO MD [Staff Physician] - 3-5 Days BINDU JOSÉ DPM [Referring] - 3-5 Days Forms: Work/School Release Form(ED) Time of Disposition: 15:42
[2021-07-28 15:56] VITALS: BP 175/90
== END 2021-07-28 15:56 | disposition home or self-care (01) ==
LOC: ED 13:16
DX: M25.561 Pain in right knee (principal); M25.511 Pain in right shoulder; I10 Essential (primary) hypertension; E11.9 Type 2 diabetes mellitus without complications; D64.9 Anemia, unspecified
CPT/HCPCS: 99282